=== PATIENT | female | born 1970 | race African-American/Black ===

== ENCOUNTER 2017-10-11 08:46 | Emergency (ER) | payer OTHER ==
[~2017-10-11] VITALS: Ht 167.6 cm; Wt 52.2 kg
[~2017-10-11 08:46] MED LIST: ADVAIR 100-501 EACH; DUONEB 2.5-0.5 M3 ML INH; Docusate Sodium PO; FOLIC ACID; FOLIC ACID1 MG PO; GLYCOLAX POWDER17 G1 PO; LORATIDINE 10 M10 M1 PO; MUCINEX TA600 MG/TA1 PO; NORCO 5-325 TA1 EACH PO; NYSTATIN 100000 UNIT/ML SW&SWALLOW; OXYCONTIN; OXYCONTIN 20 MG PO; PERCOCET; PERCOCET 5-3251 EACH PO; PERCOCET 7.5-31 EACH PO; PERCOCET PO; PROAIR HFA8.5 GM; PROAIR HFA8.5 GM IH; SINGULAIR 10 MG PO; TRAMADOL 50 MG50 MG PO; Tylenol 325MG Caplet PO
[2017-10-11] MEDS ORDERED: OXYCODONE HCL30 MG PO (09:13)
[2017-10-11 10:49] VITALS: BP 123/76
== END 2017-10-11 10:50 | disposition home or self-care (01) ==
LOC: ER 08:46
DX: E87.1 Hypo-osmolality and hyponatremia (principal); J45.909 Unspecified asthma, uncomplicated; F10.99 Alcohol use, unspecified with unspecified alcohol-induced disorder; Z87.891 Personal history of nicotine dependence; Z88.5 Allergy status to narcotic agent; Z88.8 Allergy status to other drugs, medicaments and biological substances